=== PATIENT | female | born 2000 | race Caucasian/White ===

== ENCOUNTER 2022-11-29 07:18 | Day surgery (SDC) | payer MEDICAID, SELFPAY ==
--- NOTE | 2022-11-28 17:21 | PCM.HP.BLA ---
History and Physical Date of Admission: 11/29/22 Pre-Op History and Physical ? HPI: The patient is a 22 year old female presenting for pre-operative visit. She is scheduled for laparoscopic bilateral salpingectomy, for desires sterilization on 11/29/22. Procedure discussed along with risks, benefits and complications. Other alternatives discussed for management. Consent form signed? Yes. ? ? PAST MEDICAL HISTORY PAST MEDICAL HISTORY Diagnosis Date ? Migraines ? ? Pneumonia ? ? ? PAST SURGICAL HISTORY PAST SURGICAL HISTORY Procedure Laterality Date ? COLONOSCOPY SCREENING ? CURRENT MEDICATIONS Current Outpatient Medications Medication Sig Dispense Refill ? naratriptan (AMERGE) 2.5 mg tablet Take 1 po at onset of migraine if needed repeat in 4 hours 12 tablet 5 ? fremanezumab-vfrm (AJOVY AUTOINJECTOR) 225 mg/1.5 mL auto-injector Inject 1.5 mL subcutaneously once every month. Do not shake. 1.5 mL 5 ? rizatriptan (MAXALT) 10 mg tablet Take 1 tablet by mouth as needed for migraine headache (see administration instructions). May repeat in 2 hours if needed. No more than 2 doses in 24 hours. Max 9 days a month. (Patient not taking: Reported on 10/16/2022) 10 tablet 5 ? Current Facility-Administered Medications Medication Dose Route Frequency Provider Last Rate Last Admin ? onabotulinum toxin type A 200 Units injection (BOTOX) 200 Units INTRADERMAL q 3 MONTHS Paige Wylie, CHECK WRITER.NAIL MAKING MACHINE TENDER 15 Units at 08/07/21 0000 ? ? ALLERGIES: Patient has no known allergies. ? PERSONAL HISTORY: SOCIAL HISTORY Social History ? Tobacco Use ? Smoking status: Never ? Smokeless tobacco: Never Vaping Use ? Vaping Use: Never used Substance Use Topics ? Alcohol use: No ? Drug use: No ? FAMILY HISTORY: FAMILY HISTORY FAMILY HISTORY Problem Relation Age of Onset ? Colon Cancer Mother 25 ? Cancer Mother ? ? defects Maternal Grandmother ? ? ? REVIEW OF SYMPTOMS: negative except as noted above PHYSICAL EXAMINATION: ? VITALS: Blood pressure 118/70, weight 133 lb (60.3 kg), last menstrual period 10/29/2022. ? GENERAL: The patient is well nourished, well hydrated in no acute distress. , The patient is oriented to time, place, and person. NECK: full range of motion ? ? IMPRESSION: 22yo desires sterilization ? PLAN: laparoscopic bilateral salpingectomy ? Pt has been counseled on risks/benefits and alternatives of surgery including but not limited to anesthesia, bleeding, infection, injury to pelvic structures including bowel, bladder, ureters and vessels. Pt wishes to proceed with surgery at this time. Risk of regret reviewed. Declines LARC Title 19 signed previously ? Consent signed. Pre and post op instrutions reviewed. ? I have reviewed and updated past medical and surgical history, medications and allergies Cara Cannon MD Office Visit on 11/19/2022 Office Visit on 11/19/2022 Note shared with patient
[2022-11-29] VITALS (7 sets, daily range): BP systolic 102–130; BP diastolic 66–88; PULSE 72–93; RESP 16; TEMP 36.9–37.2; O2SAT 79–100; BMI 24.0
--- NOTE | 2022-11-29 | FALS_PTH ---
PATIENT: DOMINGO NEWMAN LOC: [facility] [place] U[place][id number] AGE/SX: 22/F ROOM: RE11/29/[address]: Dr. Cara Segundo, MDDOB: 2000 BED: DIS: 11/29/2022 SPEC #: [id number] RECD: 11/29/22 12:15 STATUS: TALYA ROBERT #: [id number] GEREMIAS: 11/29/22 00:[address]: Cara Segundo DEPT: SURGICAL PATHOLOGY RECD BY: Jeremiah Bowers ENTERED: 11/29/22 12:16 SP TYPE: FALL TUBES OTHR DR: No Primary Care Phys Tissues: Fallopian tube Procedures: Surgery Specimen Level II HEADER OPERATION: Laparoscopic salpingectomy PRE-OP DIAGNOSIS: Sterilization TISSUE SUBMITTED: Bilateral fallopian tubes MICROSCOPIC DIAGNOSIS Right and left fallopian tubes, bilateral salpingectomies: Complete segments of fallopian tubes with no pathologic change. AM:april 11/30/2022 MICROSCOPIC DESCRIPTION Slides are reviewed. GROSS DESCRIPTION Received in fixative is one container labeled with the patient's name and designated bilateral fallopian tubes. The specimen consists of two fallopian tubes with an average length of 7.0 cm and has an average diameter of 0.5 cm. Both fallopian tubes have normal fimbriated ends. No mass lesions are identified. Fuse Maker sections are submitted in two cassettes as follows: 1 - one fallopian tube, 2??the other fallopian tube. / AM:april 11/29/2022 TC:4 CPT: 46807 x2
[2022-11-29 07:48] LABS: Internal QC Validated? YES +Cl - CLEAR BKGD; Pregnancy, Urine Negative Negative
[2022-11-29] MEDS: Lactated Ringers 1,000 ML 15 ML IV ×2 (07:51→10:52)
[2022-11-29 07:52] LABS: Hematocrit 39.5 % (37-47); Hemoglobin 13.2 g/dL (12.0-15.0); Mean Corp Hgb Conc 33.4 g/dL (32-36); Mean Corpuscular Hgb 30.3 pg (27.0-32.0); Mean Corpuscular Volume 90.6 fL (81-99); Mean Platelet Vol. 11.2 fl (6.2-12.0); Platelet Count 228 K/mm3 (150-450); RBC Distribution Width CV 12.6 % (11.6-14.6); RBC Distribution Width SD 41.7 fl (35.1-43.9); Red Blood Count 4.36 M/mm3 (4.2-5.4); White Blood Count 6.6 K/mm3 (4.4-11.0)
[2022-11-29] MEDS: Bupivacaine Mpf 0.5% 30 ML VIAL (09:35)
--- NOTE | 2022-11-29 09:48 | DCINST_ITS ---
Discharge Instructions Procedure Other Diet Discharge Diet: No restrictions Activity May resume sexual activity in: 2 weeks Lifting Restrictions: 20-25 lbs Dressing / Incision Call your doctor if your incision/area has: Continuous Slow Oozing, Sudden Increased Bleeding, Increased Pain/ Swelling, Increased Redness, Foul Smelling Discharge and Swelling at the incision site Call your doctor if you observe: Fever of 101 or Higher, Inability to urinate, Inability to have a bowel movement, Using more than 1 pad per hour and Uncontrolled pain Additional Dressing/Incision Instructions:: You have skin glue over your incision sites, do not pick off. You may shower and let the soap and water run over the incision sites and dab dry. Follow Up Care Please Follow Up With: Cara Segundo MD When: 1-2 weeks post OP if you need an appointment please call [phone] Test Results: Test results from this visit will be discussed in further detail at your follow- up appointment, if applicable. Discharge Plan Admission Attending Provider: Cara Segundo Primary Care Provider: Care Physician,Tonja Primary Discharge Orders/Prescriptions Prescriptions: No Action NK Referrals / Follow Up: Care Physician,No Primary [Primary Care Provider] - Disposition Disposition (needs filled in before D/C Order can be placed): Home, Self Care
--- NOTE | 2022-11-29 09:48 | PCM.OPRPT ---
Report of Operation Date of Procedure: 11/29/22 Pre-Operative Diagnosis: desires sterilization Post-Operative Diagnosis: Same Surgery/Procedure Performed:: Laparoscpoic Bilateral Salpingectomy Description of Surgical Findings:: Normal Tubes and Ovaries Bilaterally. Uterus normal. Surgeon: Cara Segundo intelligence officer basic: Poly Patten Type of Anesthesia: General and Local Special Medications: 0.5% marcaine Specimen's removed: bilateral fallopian tubes Drains: none Estimated Blood Loss (mL): <5cc Fluids Replaced: 800 Description of Procedure: After informed consent was obtained patient was taken to the operating room she was placed in supine position she was given anesthesia. She was then placed in the [facility] stirrups and she was prepped and draped in normal sterile fashion. Bladder was drained prior to the start of procedure. At this time attention was turned to the vaginal portion where weighted speculum placed at posterior fornix vagina single-tooth tenaculum was used to gently grasp the internal the cervix. uterus was gently sounded to approximately 7cm. Uterine manipulator was placed without difficulty. Legs then placed in parallel with the abdomen the tenaculum and the weighted speculum were removed. 2 towel clamps were placed at level of umbilicus. Marcaine was injected infraumbilical and a small incision was made. The 5 mm trocar was placed under direct visualization. CO2 gas was used to insufflate the intra-abdominal cavity. Upon inspection no gross abnormalities appreciated- the uterus tubes and ovaries appeared to be normal. At this time then the LLQ and RLQ ports were placed First Marcaine was injected and small incision was made a knife and the 5 mm trocars were placed. At this time then tubes were traced back to the fimbriated ends. Enseal was used to coagulate and ligate along mesosalpynx bilaterally until tubes removed completely. Good hemostasis was appreciated. At this time procedure was deemed complete successful. The gas was desufflated on from the intra-abdominal cavity. The trochars were removed. Skin was closed using 4-0 Monocryl in a subcutaneous fashion. Dermabond glue was placed. Instrument lap and needle counts were correct ?2. The uterine manipulator was removed. Vaginal sweep was performed it was negative. There were no complications anticipated normal postoperative course for this patient. Dr Patten Assisted in manipulation of the camera and placement of ports- no qualified resident. Grafts/Implants Used: none Procedure Start Time: 09:29 Procedure Stop Time: 09:47 Complications none Admit VTE Documentation VTE Present on Admission: Yes VTE Mechan Device Prophylaxis: SCD's VTE Pharm Prophylaxis ordered?: No Reason prophylaxis not ordered:: Procedure Not Indicated
== END 2022-11-29 12:48 | disposition home or self-care (01) ==
LOC: SDC 07:21 → AC 07:23
PROVIDERS: Referring Provider Obstetrics & Gynecology; Visit Provider Obstetrics & Gynecology
PROC: (CPT 58661; principal; 2022-11-29 08:35)
DX: Z30.2 Encounter for sterilization (principal)
CPT/HCPCS: 58661; 00840; 81025; 85027; 88302; J7120; C1760; J2405